=== PATIENT | male | born 1940 | race Caucasian/White ===

== ENCOUNTER → 2019-08-23 | Outpatient (CLI) | payer MEDICARE ==
--- NOTE | 2019-08-23 11:10 | PCVCIMAG ---
APPROVED REPORT Study performed: 08/23/2019 08:00:20 EXAM: Comprehensive 2D, Doppler, and color-flow Echocardiogram Patient Location: Echo lab Status: routine BSA: 1.93 HR: 64 bpmBP: 132/80 mmHg Rhythm: NSR Other Information Study Quality: Adequate Risk Factors: Cardiac Risk Factors: HTN, Hyperlipidemia Indications elevated coronary calcium score 2D Dimensions IVSd: 10.66 (7-11mm) LVDd: 42.59 mm PWd: 9.69 (7-11mm)Ascending Ao: 35.31 (22-36mm) LVDs: 30.59 (25-40mm) Left Atrium: 37.74 (27-40mm) Aortic Root: 33.56 mm LV Single Plane 4CH: 49.27 % LV Single Plane 2CH: 61.60 % Biplane EF: 56.2 % Volumes Left Atrial Volume (Systole) Single Plane 4CH: 44.25 mLSingle Plane 2CH: 51.29 mL LA ESV Index: 26.00 mL/m2 Aortic Valve AoV Peak Julian.: 1.25 m/s AO Peak Gr.: 6.20 mmHgLVOT Max P.18 mmHg LVOT Max V: 1.02 m/s Mitral Valve E/A Ratio: 0.6 MV Decel. Time: 266.78 ms MV E Max Julian.: 0.55 m/s MV A Julian.: 0.86 m/s IVRT: 138.41 ms Pulmonary Valve PV Peak Julian.: 1.00 m/sPV Peak Gr.: 4.03 mmHg Pulmonary Vein P Vein S: 0.27 m/sP Vein A: 0.30 m/s P Vein D: 0.37 m/sP Vein A Dur.: 103.8 msec P Vein S/D Ratio: 0.73 Tricuspid Valve TR Peak Julian.: 2.26 m/s TR Peak Gr.: 20.39 mmHg Left Ventricle The left ventricle is normal size. There is normal LV segmental wall motion. There is normal left ventricular wall thickness. Left ventricular systolic function is normal. The left ventricular ejection fraction is within the normal range. LVEF is >55%. Grade I - abnormal relaxation pattern. Right Ventricle The right ventricle is normal size. The right ventricular systolic function is normal. Atria The left atrium size is normal. The right atrium size is normal. Aortic Valve The aortic valve is normal in structure. No aortic regurgitation is present. There is no aortic valvular stenosis. Mitral Valve The mitral valve is normal in structure. Mild mitral regurgitation. No evidence of mitral valve stenosis. Tricuspid Valve The tricuspid valve is normal in structure. Trace tricuspid regurgitation with PAP of 27 mmHg. Pulmonic Valve The pulmonary valve is normal in structure. There is no pulmonic valvular regurgitation. Great Vessels The aortic root is normal in size. IVC is normal in size and collapses >50% with inspiration. Pericardium There is no pericardial effusion. There is no pleural effusion. <Conclusion> The left ventricle is normal size. There is normal left ventricular wall thickness. Left ventricular systolic function is normal. Grade I - abnormal relaxation pattern. The right ventricle is normal size. The left atrium size is normal. The aortic valve is normal in structure. Mild mitral regurgitation. Trace tricuspid regurgitation with PAP of 27 mmHg.
--- NOTE | 2019-08-23 11:36 | PCVCIMAG ---
APPROVED REPORT Imaging Protocol: Rest Tc-99m/Stress Tc-99m 1 day Study performed: 08/23/2019 09:13:43 Indication: CAD, Elevated Calcium Score Patient Location: Out-Patient Stress Nurse: Rebecca Yang RN NM Tech:Les Nur NMTCB Ht: 5 ft 9 in Wt: 171 lbs BSA: 1.93 m2 HR: 69 bpm BP: 159/76 mmHg BMI: 25.24 Rhythm: Sinus Rhythm Medical History Medical History: Age, Hyperlipidemia, HTN, CAD, High Calcium Score, Former Smoker Medications: Benicar, ASA, Crestor, Amlodipine Allergies: No known drug allergies Pretest Chest Pain Characteristics: No chest pain Exercise History: Physically active Resting Data Rest SPECT myocardial perfusion imaging was performed in supine position 45 minutes following the intravenous injection of 12 mCi of Tc-99m Sestamibi. Time of rest injection: 0850 Date: 08/23/2019 Administration Route: IV Administration Site: Right AC Exercise Stress At peak stress, the patient was injected intravenously with 35.1mCi of Tc-99m Sestamibi. Time of stress injection: 1030 Date: 08/23/2019 Administration Route: IV Administration Site: Right AC Patient continued to exercise for 12 minute(s). Gated Stress SPECT was performed 45 minutes after stress injection. The images were gated to evaluate regional wall motion and calculate left ventricular ejection fraction. Stress Test Details Stress Test: Exercise stress testing was performed using a Buddy protocol. HRMax Heart Rate (APMHR): 144 bpm Resting HR: 69 bpmTarget HR (85% APMHR): 122 bpm Max HR Achieved: 121 bpm % of APMHR: 84 Recovery HR: 85 bpm BP Resting BP: 159/76 mmHg Max BP: 168/72 mmHg Recovery BP: 156/69 mmHg ECG Resting ECG: Sinus Rhythm Stress ECG: Sinus Tachycardia ST Change: Non-ischemic Maximum ST Deviation: 1 mm Arrhythmia: PVC's Recovery ECG: Sinus Rhythm Clinical Reason for Termination: Maximal effort, Fatigue Stress Symptoms: Dyspnea Exercise duration: 12 min sec Exercise capacity: 13.40 METs Overall Exercise Capacity for Age: Excellent Angina Score: None Symptoms resolved during recovery. Stress ECG Conclusion Woodall Treadmill Score is 7.0 which is Low risk. Study Quality Study: Good Artifact: Mild Diaphragmatic artifact Study Data Post stress, the left ventricular ejection was 72%.. SSS: 0 SRS: 0 SDS: 0 TID = 0.80. Perfusion There is a small area of mildly reduced uptake in the basal segment of the inferior wall which is seen on the stress images as well as the resting images. This area thickens and moves normally and is most consistent with attenuation artifact. Wall Motion Normal left ventricular wall motion. Nuclear Conclusion ECG Findings: negative for ischemia Clinical Findings: negative for ischemia Nuclear Findings: negative for ischemia Exercise Capacity: above average Left Ventricular Function: normal Risk Study: low This study is of low probability for inducible ischemia or prior infarct. Normal global and segmental LV systolic function. Artifact: Mild Diaphragmatic artifact
== END | disposition home or self-care (01) ==
LOC: PCVCIMAG 08:02
PROVIDERS: ATTEND Internal Medicine Cardiovascular Disease
DX: I34.0 Nonrheumatic mitral (valve) insufficiency (principal); R93.1 Abnormal findings on diagnostic imaging of heart and coronary circulation; I10 Essential (primary) hypertension; E78.00 Pure hypercholesterolemia, unspecified; E78.5 Hyperlipidemia, unspecified; G47.33 Obstructive sleep apnea (adult) (pediatric); Z79.82 Long term (current) use of aspirin; Z79.899 Other long term (current) drug therapy; Z87.891 Personal history of nicotine dependence
CPT/HCPCS: 78452; 93017; 93306; A9500; G0463